=== PATIENT | female | born 1965 | race Caucasian/White ===

== ENCOUNTER → 2019-01-28 | Day surgery (SDC) | payer BC ==
[~2019-01-28] MED LIST: ALPR1TAB6 PO; CETI10TA16 PO; CRESTOR5 MG PO; FLUO40CA2 PO; HYDR12.575 PO; INSU100I13 SQ; INSU100V SQ; IV RINGERS,LACTATED 1000ML 1,000 ML IV SCH; LEVO112T4 PO; LIDOCAINE 1% PF 2 ML VIAL. ID PRN; LOSA-73 PO; METF10007 PO; MIDAZOLAM HCL/PF 2 MG/2 ML VIAL. IV PRN; PANT20TA2 PO; PROPOFOL 60 ML IV ONE; SITA100T PO; TRAM50TA PO; fentaNYL PF VIAL 100 MCG/2 ML VIAL IV PRN
[2019-01-28 13:33] VITALS: BP 114/68
--- NOTE | 2019-01-29 18:06 | PATHOLOGY ---
[facility] Accession Number: [id number] . 01 Material submitted: . PART A: DUODENAL BIOPSY PART B: RANDOM GASTRIC BIOPSY PART C: GASTRIC POLYP PART D: RANDOM COLON BIOPSY . 01 Clinical history: . Pre-OP DX: GERD, screening Post-OP DX: Rule out celiac, rule out H. pylori, rule out microscopic colitis . 02 Diagnosis: A. Duodenal biopsy: - Mild to moderate nonspecific duodenitis. . B. Random gastric biopsies: - Congestion and slight chronic inflammation. . C. Gastric biopsy, gastric polyp: - Consistent with fundic gland polyp. . D. Random colon biopsy: - No significant pathologic abnormalities. . (BANM:tatyana; 01/29/2019) MBR/01/29/2019 . 02 Comment: Sections of the duodenal biopsy reveal segments of duodenal and small intestine mucosa showing mild to moderate inflammation of the lamina propria comprised of chronic inflammatory cells and admixed neutrophils. The mucosal villi show no shortening or intraepithelial lymphocytosis indicative of celiac disease. The findings are compatible with a mild to moderate nonspecific duodenitis. Sections of the random gastric biopsy reveal segments of gastric body and gastric antral mucosa showing focal congestion and slight chronic inflammation. A properly controlled immunoperoxidase stain for Helicobacter is negative for Helicobacter organisms. Sections of the gastric polyp biopsy reveal segments of gastric body mucosa showing focal mild cystic dilatation of a few gastric glands consistent with fundic gland polyp. There are no adenomatous changes or evidence of malignancy. Sections of the random colon biopsy reveal multiple segments of colonic mucosa. There is no evidence of a chronic destructive colitis, lymphocytic colitis, or collagenous colitis. . . Special stain performed: Immunoperoxidase stain for Helicobacter on B1. . (CLAU:tatyana; 01/29/2019) . 02 Electronically signed: . Darrius Fraga MD, Pathologist NPI- [id number] . 01 Gross description: . A. Received in formalin labeled "Shana Riddle, duodenal BX," are 2 segments of vazquez soft tissue measuring 0.9 x 0.3 x 0.2 cm in aggregate dimensions and ranging from 0.4 to 0.5 cm in maximum dimension. The specimen is submitted entirely in cassette A1. . B. Received in formalin labeled "Shana Riddle, random gastric BX," are 4 segments of vazquez soft tissue measuring 1.0 x 0.6 x 0.2 cm in aggregate dimensions and ranging from 0.3 to 0.5 cm in maximum dimension. The specimen is submitted entirely in cassette B1. . C. Received in formalin labeled "Shana Riddle, gastric polyp," are 2 segments of vazquez soft tissue measuring 0.7 x 0.2 x 0.2 cm in aggregate dimensions and ranging from 0.3 to 0.4 cm in maximum dimension. The specimen is submitted entirely in cassette C1. . D. Received in formalin labeled "Shana Riddle, random colon BX," are 3 segments of vazquez soft tissue measuring 0.8 x 0.5 x 0.2 cm in aggregate dimensions and ranging from 0.3 to 0.4 cm in maximum dimension. The specimen is submitted entirely in cassette D1. (TSD; 01/28/2019) TOB/TOB . 02 Pathologist provided ICD-10: K29.80, K29.50, K31.7 . 02 CPT . 907492, 319764, 839540, [id number], [id number] Specimen Comment: A courtesy copy of this report has been sent to Specimen Comment: [phone], . Specimen Comment: Report sent to / DR SULLIVAN Specimen Comment: A duplicate report has been generated due to demographic updates. Performed at: 01 [facility] [address], [place], [place] [id number] MD Bryan Malik MD Phone: [phone] Performed at: 02 [facility] [address], [place] [id number] MD Darrius Fraga MD Phone: [phone]
== END | disposition home or self-care (01) ==
LOC: SURG 10:54
PROVIDERS: ATTEND Internal Medicine
DX: K31.7 Polyp of stomach and duodenum (principal); K29.80 Duodenitis without bleeding; K44.9 Diaphragmatic hernia without obstruction or gangrene; K29.50 Unspecified chronic gastritis without bleeding; K21.9 Gastro-esophageal reflux disease without esophagitis; K31.89 Other diseases of stomach and duodenum; I10 Essential (primary) hypertension; E78.5 Hyperlipidemia, unspecified; E11.9 Type 2 diabetes mellitus without complications; E03.9 Hypothyroidism, unspecified; F32.9 Major depressive disorder, single episode, unspecified; E66.9 Obesity, unspecified; E88.81 Metabolic syndrome and other insulin resistance; Z87.440 Personal history of urinary (tract) infections; Z79.82 Long term (current) use of aspirin; Z79.899 Other long term (current) drug therapy; Z79.84 Long term (current) use of oral hypoglycemic drugs; Z68.33 Body mass index [BMI] 33.0-33.9, adult; F12.90 Cannabis use, unspecified, uncomplicated
CPT/HCPCS: 43239; 45380; 88305; 88342; J2704